=== PATIENT | female | born 1950 | race Caucasian/White ===

== ENCOUNTER 2020-05-20 10:36 | Emergency (ER) | payer OTHER | END 2020-05-20 12:56 | disposition home or self-care (01) | LOC: JVIRT 10:36 | DX: Z20.822 Contact with and (suspected) exposure to COVID-19 (principal) | CPT/HCPCS: C9803; Q3014-GT; U0003 ==

== ENCOUNTER 2023-06-19 10:07 | Emergency (ER) | payer OTHER ==
[2023-06-19] MEDS ORDERED: ALBUTEROL SO4 2.5/IPRATROPIUM 0.5 INH SOL 3 ML VIAL.NEB. NEB ONE (10:36)
[2023-06-19] MEDS: ALBUTEROL SO4 2.5/IPRATROPIUM 0.5 INH SOL 3 ML VIAL.NEB. NEB ONE (10:50)
[2023-06-19 11:15] VITALS: BP 168/76; PULSE 67; RESP 18; TEMP 97.9; BMI 24.4
== END 2023-06-19 12:43 | disposition home or self-care (01) ==
LOC: FER 10:07
PROC: 3E0F7GC Introduction of Other Therapeutic Substance into Respiratory Tract, Via Natural or Artificial Opening (ICD-10-PCS; principal; 2023-06-19)
DX: R06.2 Wheezing (principal); R06.02 Shortness of breath; J45.909 Unspecified asthma, uncomplicated; Z20.822 Contact with and (suspected) exposure to COVID-19
CPT/HCPCS: 0241U-QW; 94640; 99283-25